=== PATIENT | male | born 1990 | race Caucasian/White ===

== ENCOUNTER 2018-11-22 10:24 | Emergency (ER) | payer OTHER ==
[~2018-11-22] VITALS: Ht 177.8 cm; Wt 97.5 kg
[2018-11-22] MEDS ORDERED: ONDANSETRON PF 4 MG/2 ML VIAL. IV ONE (10:45)
[2018-11-22] MEDS ORDERED: IV NORMAL SALINE 1,000ML 1,000 ML IV ONE (10:45)
--- NOTE | 2018-11-22 10:51 | PHYS DOC ---
Past History Past Medical History: GERD Past Surgical History: Tonsillectomy Alcohol Use: Occasionally Drug Use: Marijuana Adult General Chief Complaint Chief Complaint: ABDOMINAL PAIN HPI HPI 28-year-old male presents with epigastric pain. The patient was at work sitting at his dyspnea began to have epigastric pain that increased in intensity. It got up to a 7 out of 10 and the patient became concerned. The pain is a sharp ache. He has not had pain like this before. He has been feeling nauseated on and off this week. He's also had some diarrhea. His kids were sick with a stomach bug recently. He denies history of pancreatitis. He does not drink alcohol daily. He has a history of GERD as a teenager, but has not had difficulty in several years. He denies fever or chills. Review of Systems Review of Systems Constitutional: Denies fever or chills [] Eyes: Denies change in visual acuity, redness, or eye pain [] HENT: Denies nasal congestion or sore throat [] Respiratory: Denies cough or shortness of breath [] Cardiovascular: No additional information not addressed in HPI [] GI: Epigastric abdominal pain, nausea. Denies vomiting, bloody stools. [] : Denies dysuria or hematuria [] Musculoskeletal: Denies back pain or joint pain [] Integument: Denies rash or skin lesions [] Neurologic: Denies headache, focal weakness or sensory changes [] Endocrine: Denies polyuria or polydipsia [] All other systems were reviewed and found to be within normal limits, except as documented in this note. Current Medications Current Medications Current Medications Medications (Trade) Dose Ordered Sig/[facility] Start Time Stop Time Status Last Admin Dose Admin Ondansetron HCl (Zofran) 4 mg 1X ONCE 11/22/18 10:45 11/22/18 10:46 DC Sodium Chloride 1,000 ml @ 1,000 mls/hr 1X ONCE 11/22/18 10:45 11/22/18 11:44 Allergies Allergies Allergies Coded Allergies Type Severity Reaction Last Updated Verified Sulfa (Sulfonamide Antibiotics) Allergy Unknown 11/22/18 Yes Physical Exam Physical Exam Constitutional: Well developed, well nourished, no acute distress, non-toxic appearance. [] HENT: Normocephalic, atraumatic, bilateral external ears normal, oropharynx moist, no oral exudates, nose normal. [] Eyes: PERRLA, EOMI, conjunctiva normal, no discharge. [] Neck: Normal range of motion, no tenderness, supple, no stridor. [] Cardiovascular:Heart rate regular rhythm, no murmur [] Lungs & Thorax: Bilateral breath sounds clear to auscultation [] Abdomen: Bowel sounds normal, soft, mild epigastric tenderness, no masses, no pulsatile masses. [] Skin: Warm, dry, no erythema, no rash. [] Back: No tenderness, no CVA tenderness. [] Extremities: No tenderness, no cyanosis, no clubbing, ROM intact, no edema. [] Neurologic: Alert and oriented X 3, normal motor function, normal sensory function, no focal deficits noted. [] Psychologic: Affect normal, judgement normal, mood normal. [] Current Patient Data Vital Signs Vital Signs Date Time Temp Pulse Resp B/P (MAP) Pulse Ox O2 Delivery O2 Flow Rate FiO2 11/22/18 10:30 97.9 76 20 99 Room Air EKG EKG [] Radiology/Procedures Radiology/Procedures [] Impressions: CT ABD PELV W/ IV CONTRST ONLY Indication: Left upper quadrant pain this a.m., nausea Technique: Postcontrast CT imaging was performed of the abdomen pelvis, multiplanar reconstruction images submitted. No oral contrast was given as per request. One or more of the following individualized dose reduction techniques were utilized for this examination: 1. Automated exposure control 2. Adjustment of the mA and/or kV according to patient size 3. Use of iterative reconstruction technique. Comparison: None Findings: There is no significant abnormality of the limited visualized lung bases. No focal abnormality is identified liver, spleen, pancreas. There is no adrenal nodularity. Both kidneys enhance, no hydronephrosis. Gallbladder is present without obvious intraluminal abnormality by CT. Evaluation of bowel is limited without oral contrast. Bowel is not significantly dilated. There is no free fluid or free air. There may be a long segment mild wall thickening from the splenic flexure through the descending colon to level of the mid sigmoid colon although not associated with significant adjacent inflammatory-type change. Normal appendix is visualized. There is nonspecific fecalization of the more distal small bowel. There are multiple small nonspecific mesenteric nodes, largest of the left mesentery about 0.8 cm short axis dimension. IMPRESSION: 1. Limited evaluation without oral contrast, there may be mild long segment wall thickening from splenic flexure to the proximal sigmoid colon as can be seen with colitis in the appropriate clinical setting although not associated with significant inflammatory change of the pericolonic fat. 2. There is no CT evidence of acute appendicitis. There is nonspecific fecalization of more distal small bowel. Electronically signed by: Stephen Barrera MD (11/22/2018 11:46 AM) [id number] Course & Med Decision Making Course & Med Decision Making Pertinent Labs and Imaging studies reviewed. (See chart for details) The patient's labs are unremarkable. His CT scan shows possible colitis in the descending colon. I will treat him with Augmentin for 7 days. He also has fecal is a she distal small bowel. There is some moderate stool retention. I have advised that he also do a bowel cleanout with magnesium citrate at home. The patient's pain did improve after the GI cocktail. It's also possible that this is a flareup of GERD. We discussed possible 14 day treatment with Nexium. The patient will decide if he wants to 3 of these treatments concurrently or wait to try the nexium if his symptoms don't improve. He is stable for discharge at this time. [] Dragon Disclaimer Dragon Disclaimer This electronic medical record was generated, in whole or in part, using a voice recognition dictation system. Departure Departure: Impression: Primary Impression: Colitis Additional Impression: Constipation by delayed colonic transit Disposition: HOME, SELF-CARE Condition: STABLE Referrals: DAVE SCOTT MD (PCP) Patient Instructions: Colitis, Constipation, Adult, [id number] Scripts Amoxicillin/Potassium Clav (AUGMENTIN 875-125 TABLET) 1 Each Tablet 1 TAB PO BID for colitis, #14 TAB Prov: LAN EDUARDO DO 11/22/18 Problem Qualifiers LAN EDUARDO DO Nov 22, 2018 10:51
[2018-11-22 10:54] LABS: BASO % 0 % (0-3); EOS # 0.1 x10^3/uL (0.0-0.7); EOS % 3 % (0-3); HEMATOCRIT 40.6 % (39.0-53.0); HEMOGLOBIN 13.6 g/dL (13.0-17.5); LYMPH # 1.1 x10^3/uL (1.0-4.8); LYMPH % 43 % (24-48); MEAN CORPUSCULAR HEMOGLOBIN 28 pg (25-35); MEAN CORPUSCULAR HGB CONC 34 g/dL (31-37); MEAN CORPUSCULAR VOLUME 83 fL (79-100); MONO # 0.2 x10^3/uL (0.0-1.1); MONO % 9 % (0-9); NEUT # 1.2 x10^3uL (1.8-7.7); NEUT % 45 % (31-73); PLATELET COUNT 203 x10^3/uL (140-400); RED BLOOD COUNT 4.88 x10^6/uL (4.30-5.70); RED CELL DISTRIBUTION WIDTH 13.4 % (11.5-14.5); WHITE BLOOD COUNT 2.7 x10^3/uL (4.0-11.0)
[2018-11-22] MEDS ORDERED: IOHEXOL 300 MG/ML 75 ML VIAL. IV ONE (11:00)
[2018-11-22] MEDS ORDERED: LIDO:MAALOX 1:1 20 ML SINGLE DOSE. PO ONE (11:00)
[2018-11-22 11:08] LABS: ALBUMIN 3.9 g/dL (3.4-5.0); ALBUMIN/GLOBULIN RATIO 1.2 (1.0-1.7); CALCIUM 8.7 mg/dL (8.5-10.1); CREATININE 1.1 mg/dL (0.7-1.3); GFR 79.7; TOTAL BILIRUBIN 0.2 mg/dL (0.2-1.0); TOTAL PROTEIN 7.2 g/dL (6.4-8.2)
--- NOTE | 2018-11-22 11:49 | RAD ---
CT ABD PELV W/ IV CONTRST ONLY Indication: Left upper quadrant pain this a.m., nausea Technique: Postcontrast CT imaging was performed of the abdomen pelvis, multiplanar reconstruction images submitted. No oral contrast was given as per request. One or more of the following individualized dose reduction techniques were utilized for this examination: 1. Automated exposure control 2. Adjustment of the mA and/or kV according to patient size 3. Use of iterative reconstruction technique. Comparison: None Findings: There is no significant abnormality of the limited visualized lung bases. No focal abnormality is identified liver, spleen, pancreas. There is no adrenal nodularity. Both kidneys enhance, no hydronephrosis. Gallbladder is present without obvious intraluminal abnormality by CT. Evaluation of bowel is limited without oral contrast. Bowel is not significantly dilated. There is no free fluid or free air. There may be a long segment mild wall thickening from the splenic flexure through the descending colon to level of the mid sigmoid colon although not associated with significant adjacent inflammatory-type change. Normal appendix is visualized. There is nonspecific fecalization of the more distal small bowel. There are multiple small nonspecific mesenteric nodes, largest of the left mesentery about 0.8 cm short axis dimension. IMPRESSION: 1. Limited evaluation without oral contrast, there may be mild long segment wall thickening from splenic flexure to the proximal sigmoid colon as can be seen with colitis in the appropriate clinical setting although not associated with significant inflammatory change of the pericolonic fat. 2. There is no CT evidence of acute appendicitis. There is nonspecific fecalization of more distal small bowel. Electronically signed by: Stephen Barrera MD (11/22/2018 11:46 AM) [facility]
[2018-11-22] MEDS ORDERED: AMOX1TAB61 PO (11:56)
[2018-11-22 12:06] VITALS: BP 128/85
== END 2018-11-22 12:14 | disposition home or self-care (01) ==
LOC: ER 10:24
DX: K52.9 Noninfective gastroenteritis and colitis, unspecified (principal); K59.01 Slow transit constipation; K21.9 Gastro-esophageal reflux disease without esophagitis; Z88.2 Allergy status to sulfonamides
CPT/HCPCS: 36415; 74177; 80053; 83690; 85025; 96361; 96374; 99285; J2405; Q9967; J7030

== ENCOUNTER → 2019-03-15 | Outpatient (CLI) | payer OTHER ==
[~2019-03-15] MED LIST: AMOX1TAB61 PO
--- NOTE | 2019-03-15 10:10 | RAD ---
EXAM: AP, oblique and lateral views of the right foot DATE: 03/15/2019 12:00 AM INDICATION: Right foot pain COMPARISON: No Prior FINDINGS/ IMPRESSION: 1. No evidence of acute fracture or dislocation. 2. Joint spaces are preserved without significant degenerative/proliferative change. 3. Mild soft tissue swelling overlying the lateral forefoot. Electronically signed by: Braden Hernandez MD (03/15/2019 10:07 AM) [id number]
== END | disposition home or self-care (01) ==
LOC: PMG 09:28
PROVIDERS: ATTEND Registered Nurse
DX: M79.89 Other specified soft tissue disorders (principal)
CPT/HCPCS: 73630

== ENCOUNTER 2021-08-19 15:38 | Emergency (ER) | payer OTHER ==
[~2021-08-19] VITALS: Ht 177.8 cm; Wt 98.6 kg
[2021-08-19] MEDS ORDERED: IV NORMAL SALINE 1,000ML 1,000 ML IV ONE (16:15)
[2021-08-19] MEDS ORDERED: FAMOTIDINE 20 MG/2 ML VIAL IVP ONE (16:15)
[2021-08-19] MEDS ORDERED: DEXAMETHASONE SOD PHOS 10 MG/ML VIAL. IV ONE (16:15)
[2021-08-19] MEDS ORDERED: FAMO-63 PO (17:46)
[2021-08-19] MEDS ORDERED: PRED20TA PO (17:46)
[2021-08-19] MEDS ORDERED: HYDR25TA PO (17:46)
--- NOTE | 2021-08-19 17:47 | PHYS DOC ---
Past History Past Medical History: GERD (VIKA SERRATO APRN) Past Surgical History: Tonsillectomy (VIKA SERRATO APRN) Alcohol Use: Occasionally Drug Use: Marijuana (VIKA SERRATO APRN) Adult General Chief Complaint Chief Complaint: ALLERGIC REACTION HPI HPI Patient is a 31-year-old male who presents emergency department concerning hives since this past Wednesday. Patient denies any changes in soaps or hygiene products, denies any food allergies, denies trying any new foods. Patient does report some nausea with diarrhea. Patient reports he did make a medication change at the first of this year from Zoloft to Prozac. Patient reports he had no problems until 3 days ago when he broke out in hives on his trunk and extremities, patient reports she has been treating with cetirizine and Benadryl, states he has been taken 50 mg of Benadryl every 4 hours since noon yesterday with no relief in symptoms. Patient reports he is still taking the Prozac which he now suspects he may be allergic to. Patient denies shortness of breath, denies sensations to his throat or airway, denies chest congestion or nasal congestion, denies rashes to the palms of his hands or the soles of his feet, denies recent fever or chills, denies taking antibiotics, denies other physical complaints or physical concerns. (VIKA SERRATO APRN) Review of Systems Review of Systems 14 body systems of review of systems have been reviewed. See HPI for pertinent positives and negative responses, otherwise all other systems are negative, nonpertinent or noncontributory. Constitutional: Negative except as outlined in HPI above. Skin: Negative except as outlined in HPI above. Eyes: Negative except as outlined in HPI above. HENT: Negative except as outlined in HPI above. Respiratory: Negative except as outlined in HPI above. Cardiovascular: Negative except as outlined in HPI above. GI: Negative except as outlined in HPI above. : Negative except as outlined in HPI above. Musculoskeletal: Negative except as outlined in HPI above. Integument: Negative except as outlined in HPI above. Neurologic: Negative except as outlined in HPI above. Endocrine: Negative except as outlined in HPI above. Lymphatic: Negative except as outlined in HPI above. Psychiatric: Negative except as outlined in HPI above. (VIKA SERRATO APRN) Current Medications Current Medications Current Medications Medications (Trade) Dose Ordered Sig/[facility] Start Time Stop Time Status Last Admin Dose Admin Dexamethasone Sodium Phosphate (Decadron) 10 mg 1X ONCE 08/19/21 16:15 08/19/21 16:16 DC 08/19/21 16:24 10 MG Famotidine (Pepcid Vial) 40 mg 1X ONCE 08/19/21 16:15 08/19/21 16:16 DC 08/19/21 16:29 40 MG Sodium Chloride 1,000 ml @ 1,000 mls/hr 1X ONCE 08/19/21 16:15 08/19/21 17:14 DC 08/19/21 16:19 1,000 MLS/HR (VIKA SERRATO APRN) Allergies Allergies Allergies Coded Allergies Type Severity Reaction Last Updated Verified Sulfa (Sulfonamide Antibiotics) Allergy Unknown 11/22/18 Yes (VIKA SERRATO APRN) Physical Exam Physical Exam Constitutional: Well developed, well nourished, no acute distress, non-toxic appearance. 31-year-old male in no apparent distress. HENT: Normocephalic, atraumatic. Eyes: Conjunctiva normal, no discharge. Neck: Normal range of motion, no stridor. Cardiovascular: No cyanosis appreciated, distal cap refill less than 2 seconds. Lungs & Thorax: Patient is in no respiratory distress, no audible adventitious lung sounds appreciated. Abdomen: Nontender, no abnormalities noted. Skin: Warm, dry, no erythema, there is rash to trunk axilla and upper thighs papules and plaques ranging from pink to red with central clearing with complaint of pruritus, the upper chest neck face palms of hand and feet are spared. Back: No tenderness, no deformities. Extremities: No tenderness, no cyanosis, no clubbing, ROM intact, no edema. Neurologic: Alert and oriented X 3, normal motor function, normal sensory function, no focal deficits noted. Psychologic: Affect normal, judgement normal, mood normal. (VIKA SERRATO APRN) Current Patient Data Vital Signs Vital Signs Date Time Temp Pulse Resp B/P (MAP) Pulse Ox O2 Delivery O2 Flow Rate FiO2 08/19/21 15:40 98.1 102 18 145/82 (103) 98 Room Air (VIKA SERRATO APRN) EKG EKG [] (VIKA SERRATO APRN) Radiology/Procedures Radiology/Procedures [] (VIKA SERRATO APRN) Heart Score C/O Chest Pain: No Risk Factors: Risk Factors: DM, Current or recent (<one month) smoker, HTN, HLP, family history of CAD, obesity. Risk Scores: Risk Factors: DM, Current or recent (<one month) smoker, HTN, HLP, family history of CAD, obesity. (VIKA SERRATO APRN) Course & Med Decision Making Course & Med Decision Making Pertinent Labs and Imaging studies reviewed. (See chart for details) 31-year-old male, vital signs reviewed, presents emergency department concerning hives that started this past Wednesday with no relief of Benadryl p.o. Physical examination is consistent with acute urticaria most likely medication induced as patient had recent change from Zoloft to Prozac, upon investigation of onset of symptoms, this is unlikely from foods consumed, there may be an emotional or physical stressor related to patient is on antidepressants, unlikely insect bites, patient denies being exposed to cold temperatures, there is no family history of urticaria, the rash is well circumcised we will with slight light pink to reddish erythema with central clearing, there is no lichenification present excoriations or erosions present, there is no hemorrhagic crusts or weeping, no submucosal edema, the lips face head neck and upper chest is spared, there is no airway swelling, there is no angioedema present. Will give 40 mg IV Pepcid, 10 mg IV Decadron, 1 L normal saline, will reevaluate after period of time. After period of time, the rash remains light pink in color however is no longer raised, patient reports there is no further pruritus. Discussed with patient will prescribe Pepcid 20 mg to take twice a day, will continue taking till 5 days after resolution of hives, will also prescribe a regimen of prednisone, discussed with patient to stop taking all medications, stop taking Benadryl, will also prescribe hydroxyzine, strict return to ER precautions were reviewed, discussed with patient to call his primary care physician tomorrow to let him know he has stopped taking his psychiatric medications, review other options moving forward. Patient gave verbal understanding of and is amenable to ED discharge planning. Discussed with the patient all findings and diagnostic testing as well as the need to follow-up with their primary care provider for further evaluation and treatment or return to the ED if any new or worsening symptoms. Strict return precautions were also discussed at length, the patient voiced understanding and agreement with the discharge planning. The patient was nontoxic in appearance, in no apparent distress, and hemodynamically stable at the time of disposition. (VIKA SERRATO APRN) Course & Med Decision Making I was the Attending physician on the above date of service of this patient. This patient was evaluated, examined, treated, and dispositioned from the emergency department by the mid-level practitioner. Although I was working at the time , no assistance was requested. Electronically signed, Ciera Francis DO (CIERA FRANCIS DO) Fabian Disclaimer Draglang Disclaimer This electronic medical record was generated, in whole or in part, using a voice recognition dictation system. (VIKA SERRATO APRN) Departure Departure: Impression: Primary Impression: Acute urticaria Disposition: LEFT AWOL/ELOPED Condition: GOOD Referrals: HERNAN NATARAJAN MD (PCP) Patient Instructions: Hives Additional Instructions: You were seen today in the emergency department for a breakout of hives. As we discussed, please stop taking all Zoloft and or Prozac. Please discontinue taking any further Benadryl. I am prescribing you Pepcid to take twice a day, I am also prescribing a short run of prednisone to take as well, please take as directed until complete, I am also prescribing you hydroxyzine to take in Benadryl's place in the event of returning severe itching and hives. Please continue taking Pepcid twice a day until 5 days after hives have resolved. As we discussed, please call Dr. Natarajan tomorrow to discuss your hives and s uspicion of medication change from Zoloft to Prozac, discussed with him that you have stopped taking these medications and to discuss other options moving forward. Please return to the emergency department for any airway swelling, difficulty breathing, or other concerns. Thank you for visiting our Emergency Department. It was a pleasure taking care of you today in the emergency department and we appreciate you trusting us with your care. If any additional problems come up don't hesitate to return to visit us. Please follow up with your primary care provider so they can plan additional care if needed and know about the problem that you had. If symptoms worsen come back to the Emergency Department. Any concerning symptoms that start such as chest pain, shortness of air, weakness or numbness on one side of the body, running high fevers or any other concerning symptoms return to the ER. Scripts Prednisone (PREDNISONE) 20 Mg Tablet 1 TAB PO UD for hives, #18 TAB 0 Refills Take 3 tablets once a day on days 1 through 3, reduced to 2 tablets once a day on days 4 through 6, reduced to 1 tablet once a day on days 7 through 9. Prov: VIKA SERRATO APRN 08/19/21 Hydroxyzine Hcl (HYDROXYZINE HCL) 25 Mg Tablet 1 TAB PO PRN TID PRN for ITCHING, #30 TAB Take 1 tablet by mouth up to 3 times a day for severe itching. Prov: VIKA SERRATO APRN 08/19/21 Famotidine (PEPCID) 20 Mg Tablet 1 TAB PO BID for hives, #60 TAB 2 Refills Take 1 tablet twice a day until 5 days after hives have resolved. Prov: VIKA SERRAOT APRN 08/19/21 VIKA SERRATO APRN Aug 19, 2021 17:47 CIERA FRANCIS DO Aug 20, 2021 08:02
[2021-08-19 17:52] VITALS: BP 137/73
== END 2021-08-19 17:55 | disposition left against medical advice (07) ==
LOC: ER 15:38
DX: L50.8 Other urticaria (principal); R19.7 Diarrhea, unspecified; K21.9 Gastro-esophageal reflux disease without esophagitis; Z88.2 Allergy status to sulfonamides
CPT/HCPCS: 96361; 96374; 96375; 99284; J1100; J3490; J7030